=== PATIENT | male | born 1985 | race Caucasian/White ===

== ENCOUNTER 2017-12-30 10:39 | Outpatient (CLI) | payer OTHER ==
--- NOTE | 2017-12-30 11:47 | CT ---
CT ABDOMEN AND PELVIS PERFORMED WITHOUT CONTRAST ENHANCEMENT: HISTORY: Abdominal pain. Hematuria. FINDINGS: ABDOMEN: The lung bases are clear. The liver, spleen, pancreas, and gallbladder regions appear unre markable on this noncontrast study. The right and left adrenal glands are normal in appearance. The right and left kidneys are normal in size. No renal calculi or signs for obstruction. There is no significant periaortic or mesenteric adenopathy. PELVIS: The prostate is slightly prominent for the patient's age. There is no evidence of any signi ficant adenopathy or mass. The appendix is normal. IMPRESSION: 1. No evidence of renal or ureteral calculi. 2. Mildly prominent prostate for the patient's age. POS: RENÉ
== END 2017-12-30 10:40 | disposition home or self-care (01) ==
LOC: SCSCT 10:39
PROVIDERS: ATTEND Family Medicine
DX: R31.29 Other microscopic hematuria (principal)
CPT/HCPCS: 74176

== ENCOUNTER 2020-06-05 14:11 | Outpatient (CLI) | payer OTHER ==
--- NOTE | 2020-06-05 14:57 | RAD ---
EXAM: Toes left foot: 4 views INDICATIONS: Pain COMPARISON: None. FINDINGS: No evidence of fracture or dislocation. No acute osseous abnormality identified. IMPRESSION: No acute finding
== END 2020-06-05 14:12 | disposition home or self-care (01) ==
LOC: SCSRAD 14:11
PROVIDERS: ATTEND Family Medicine
DX: S99.922A Unspecified injury of left foot, initial encounter (principal)

== ENCOUNTER 2020-11-12 17:30 | Outpatient (CLI) | payer OTHER | END 2020-11-12 17:31 | disposition home or self-care (01) | LOC: SLEEPLAB 17:30 | PROVIDERS: ATTEND Family Medicine | DX: G47.33 Obstructive sleep apnea (adult) (pediatric) (principal); R53.83 Other fatigue; R51.9 Headache, unspecified; R06.83 Snoring; G47.00 Insomnia, unspecified; G47.10 Hypersomnia, unspecified | CPT/HCPCS: 95806 ==

== ENCOUNTER 2021-09-09 10:29 | Outpatient (CLI) | payer OTHER | END 2021-09-09 10:30 | disposition home or self-care (01) | LOC: BICULT 10:29 | PROVIDERS: ATTEND Urology | DX: N50.82 Scrotal pain (principal); R31.29 Other microscopic hematuria | CPT/HCPCS: 76870; 93976 ==

== ENCOUNTER 2023-12-16 07:04 | Outpatient (CLI) | payer BC | END 2023-12-16 07:05 | disposition home or self-care (01) | LOC: ULT 07:04 | PROVIDERS: ATTEND Internal Medicine Gastroenterology | DX: R10.9 Unspecified abdominal pain (principal) | CPT/HCPCS: 76700 ==